=== PATIENT | female | born 1995 | race Two or more races ===

== ENCOUNTER 2023-02-06 10:46 | Observation (INO) | payer OTHER | END 2023-02-06 11:46 | disposition home or self-care (01) | LOC: LDRP 10:46 → UNDOADMOB 10:46 → LDRP 10:49 → UNDODISOB 11:46 | PROVIDERS: ADMIT Obstetrics & Gynecology; ATTEND Obstetrics & Gynecology | DX: O36.8130 Decreased fetal movements, third trimester, not applicable or unspecified (principal); O99.323 Drug use complicating pregnancy, third trimester; F12.90 Cannabis use, unspecified, uncomplicated; Z3A.38 38 weeks gestation of pregnancy | CPT/HCPCS: 59025; 81002; 94760; G0378 ==

== ENCOUNTER 2024-05-13 21:43 | Emergency (ER) | payer MEDICAID, OTHER ==
[~2024-05-13] VITALS: Ht 170.2 cm; Wt 72.7 kg
[2024-05-13 21:43] VITALS: BP 110/74; PULSE 98; RESP 20; O2SAT 100
[2024-05-13] MEDS ORDERED: HYDR2.5C39 TOP (23:23)
[2024-05-13] MEDS ORDERED: HYDR25SU21 RE (23:23)
[2024-05-13] MEDS ORDERED: DOCU-94 PO (23:23)
[2024-05-13] MEDS ORDERED: DIBU1OIN EX (23:23)
[2024-05-13] MEDS ORDERED: IBU600T PO (23:23)
== END 2024-05-14 00:14 | disposition home or self-care (01) ==
LOC: ER 21:43
DX: K64.4 Residual hemorrhoidal skin tags (principal); Z79.899 Other long term (current) drug therapy

== ENCOUNTER 2024-11-08 09:23 | Observation (INO) | payer OTHER ==
[~2024-11-08 09:23] MED LIST: DIBU1OIN EX; DOCU-94 PO; HYDR2.5C39 TOP; HYDR25SU21 RE; IBU600T PO
--- NOTE | 2024-11-08 13:40 | DVHDS2 ---
Physician Discharge Progress N Final Diagnosis: dec movement Operations or Procedures: Operations or Procedures nst,sono Condition on Discharge: Good Disposition: Home Discharge Instructions: Diet: Regular Activity: No Restrictions, As Tolerated Medications: na Follow Up Care: Specialist: 2d Discharge Statement: "Patient was advised to return to the ER or call 911 if any headaches, dizziness, shortness of breath, chest pain, abdominal pain, bleeding, fevers, or worsening of medical condition. Patient was counseled about treatment plan, medications, possible side effects, patientverbalized understanding. All questions were answered to the best of my ability. This discharge took greater then 30 minutes in planning, reviewing documentation, counseling the patient, and discussing with other team members." BRIDGETT VELIZ DO Nov 08, 2024 13:40
== END 2024-11-08 10:53 | disposition home or self-care (01) ==
LOC: LDRP 09:23
PROVIDERS: ADMIT Obstetrics & Gynecology; ATTEND Obstetrics & Gynecology
DX: O36.8130 Decreased fetal movements, third trimester, not applicable or unspecified (principal); O26.893 Other specified pregnancy related conditions, third trimester; H53.8 Other visual disturbances; O99.323 Drug use complicating pregnancy, third trimester; F12.90 Cannabis use, unspecified, uncomplicated; F14.90 Cocaine use, unspecified, uncomplicated; Z3A.30 30 weeks gestation of pregnancy; Z79.899 Other long term (current) drug therapy
CPT/HCPCS: 59025; 81002; 94760; G0378

== ENCOUNTER 2025-01-05 00:11 | Inpatient (IN) | payer MEDICAID, OTHER ==
[~2025-01-05] VITALS: Ht 170.2 cm; Wt 79.4 kg
[2025-01-05] VITALS (7 sets, daily range): BP systolic 113–132; BP diastolic 68–83; PULSE 69–76; RESP 14–18; TEMP 97.8–98.9; O2SAT 95–100
--- NOTE | 2025-01-05 00:39 | DVHPN2 ---
Visit Coding OBGYN Date of Service: Jan 05, 2025 Billing Provider: MINGO BARNETT DO HEALTH INSURANCE SPECIALIST Common Visit Codes: [id number] INP/OBS CARE (HIGH) MINGO BARNETT DO Jan 05, 2025 00:38
[2025-01-05] MEDS ORDERED: WITCH HAZEL-GLYCERIN PAD TOP PRN (00:45)
[2025-01-05] MEDS ORDERED: PHISODERM TOP SOLN 240ML BTL TOP PRN (00:45)
[2025-01-05] MEDS: ceFAZolin 2 GM/D5W50ml 50 ML IV ONE (00:45)
[2025-01-05] MEDS ORDERED: DERMOPLAST 60ML BOTTLE TOP PRN (00:45)
[2025-01-05] MEDS ORDERED: MORPHINE SULF PF 5 MG/10 ML VIAL ONE (00:49)
[2025-01-05] MEDS ORDERED: fentaNYL CITRATE 100 MCG/2 ML VL ONE (00:49)
[2025-01-05] MEDS ORDERED: OXYTOCIN 10UNIT/ML 1ML VIAL ONE (00:51)
[2025-01-05] MEDS ORDERED: ONDANSETRON HCL 4 MG/2 ML VIAL ONE (00:54)
[2025-01-05] MEDS ORDERED: DexAMETHasone SOD PHOS 10MG/1ML VIAL INJ ONE (00:54)
[2025-01-05] MEDS ORDERED: PHENYLEPHRINE HCL 10 MG/ML VL ONE (00:58)
--- NOTE | 2025-01-05 00:58 | DVH ---
INDICATION: VAG BLEED TECHNIQUE: Limited Multiple real-time grayscale transabdominal sonographic images along with color an d duplex Doppler of the uterus were obtained. COMPARISON: None FINDINGS: The placenta is posterior in location and appears to be covering the cervix. heart ra te is 152 beats per minute. Limited interrogation reveals no other gross abnormalities. IMPRESSION: 1. Limited pelvic ultrasound for evaluation of the placenta. Placenta previa noted.
--- NOTE | 2025-01-05 00:59 | DVHHP ---
ADMIT DATE: 01/05/2025 CHIEF COMPLAINT: Acute vaginal bleeding. HISTORY OF PRESENT ILLNESS: This is a 29-year-old -[place] female. She is 5, para 3 with intrauterine at 38 weeks and 2 days by stated EDC. The patient receives care elsewhere outside of [facility]. We currently do not have access to her OB medical records. The patient began to have bright red painless uterine bleeding about an hour ago. The patient has a large clot upon presentation to the hospital. She denies any contractions or rupture of membranes. She denies any substance abuse. She does not have a known history of placenta previa, and states her has been normal thus far. PAST MEDICAL HISTORY: Anemia. PAST SURGICAL HISTORY: Negative. MEDICATIONS: vitamins. ALLERGIES: No known drug allergies. SOCIAL HISTORY: Denies any tobacco, alcohol or illicit drug use. FAMILY HISTORY: Noncontributory. REVIEW OF SYSTEMS: Fourteen-point review of systems is negative as otherwise stated in the history of present illness. OBJECTIVE: VITAL SIGNS: Stable. GENERAL: Alert, in moderate acute distress. HEENT: Normocephalic, atraumatic. EOMI. CARDIOVASCULAR: Regular rate and rhythm. PULMONARY: Clear to auscultation. ABDOMEN: Gravid, soft, nontender. EXTREMITIES: Without cyanosis or edema. PELVIC: Shows normal external female genitalia. There is acute vaginal bleeding. There is approximately a 300-400 mL clot on the bed. Gentle pelvic exam reveals that the cervix is only 1 cm open and 0% effaced. I did not go through the internal os with the exam. A bedside ultrasound shows that the patient has a placenta previa with normal amniotic fluid index, and a viable fetus with heart rate in the 160s. [place] shows irregular uterine contractions. ASSESSMENT: * Term intrauterine , 38 weeks and 2 days. * Acute third trimester bleeding due to placenta previa. PLAN: The patient will be admitted. She will be kept n.p.o. She has consented for emergent primary section. The risks, benefits, alternatives discussed with the patient. Risks of pain, scar, bleeding, infection, possible injury to bowel, bladder, adjacent organs, possible blood transfusion all discussed with the patient and informed consent obtained. Michael Dill DO CG/HEM TID: [id number] RECEIPT: [id number] MTDD
[2025-01-05 01:19] LABS: Basophils # (auto) 0 10 ^3/uL (0-0.2); Mean Corpuscular Hemoglobin 23.4 pg (28.0-32.0); Monocytes # (auto) 0.7 10 ^3/uL (0-1.3); Nucleated Red Blood Cells % 0.1 %; White Blood Cell 9.9 10^3/uL (4.4-10.8)
[2025-01-05 01:21] LABS: Basophils % (auto) 0.3 % (0.0-2.0); Eosinophils # (auto) 0.1 10 ^3/uL (0-0.8); Eosinophils % (auto) 0.6 % (0.0-7.0); Hematocrit 26.4 % (36.0-46.0); Hemoglobin 8.6 g/dL (12.2-16.2); Lymphocytes # (auto) 2.1 10 ^3/uL (0.4-5.4); Lymphocytes % (auto) 21.6 % (10.0-50.0); Mean Corpuscular Hgb Conc. 32.6 g/dL (32.0-36.0); Mean Corpuscular Volume 71.8 fL (80.0-100.0); Monocytes % (auto) 7.2 % (0.0-12.0); Neutrophils # (auto) 6.9 10 ^3/uL (1.6-8.6); Neutrophils % (auto) 70.3 % (37.0-80.0); Platelet Count (auto) 294 10^3/uL (140-450); Red Blood Cells 3.68 10^6/uL (4.0-5.20); Red Cell Distribution Width 15.1 % (11.8-14.3)
[2025-01-05 01:41] LABS: INR 0.97 (0.9-1.15); Partial Thromboplastin Time 24.2 SEC (24.5-34.5); Prothrombin Time 10.3 sec (9.3-11.8)
[2025-01-05 02:06] LABS: Alanine Aminotransferase 13 U/L (7-40); Albumin 4.1 g/dL (3.2-4.8); Anion Gap 12 (5-15); Aspartate Aminotransferase 18 U/L (13-40); Bilirubin, Total 0.6 mg/dL (0.2-1.0); Calcium 9.9 mg/dL (8.7-10.4); Carbon Dioxide 21 mmol/L (20-31); Chloride 106 mmol/L (98-107); Glucose 78 mg/dL (74-106); Sodium 139 mmol/L (136-145); Total Protein 7.1 g/dL (5.7-8.2)
[2025-01-05 02:08] LABS: Alkaline Phosphatase 153 U/L (46-116); BUN/Creatinine Ratio 8.3 (10.0-20.0); Blood Urea Nitrogen < 5 mg/dL (9-23); Potassium 3.3 mmol/L (3.5-5.1)
[2025-01-05] MEDS ORDERED: HYDROmorphone HCL 2 MG/ML VL/or syr IV PRN (02:15)
[2025-01-05] MEDS ORDERED: NALOXONE HCL 0.4 MG/ML VIAL IV PRN (02:15)
[2025-01-05] MEDS: ONDANSETRON HCL 4 MG/2 ML VIAL IV PRN (02:36)
--- NOTE | 2025-01-05 02:40 | DVHOP ---
DATE OF SURGERY: 01/05/2025 PREOPERATIVE DIAGNOSES: * Term intrauterine , 38 weeks and 2 days with acute third trimester bleeding. * Placenta previa. FINAL DIAGNOSES: * Term intrauterine , 38 weeks and 2 days with acute third trimester bleeding. * Placenta previa. PROCEDURE PERFORMED: Primary low transverse section via Pfannenstiel skin incision. SURGEON: Michael Dill DO TYPE OF ANESTHESIA: Spinal. DESCRIPTION OF FINDINGS: Delivery of a liveborn female , cephalic presentation, nuchal cord x 2, clear amniotic fluid, scores of 7 and 9, weight 6 pounds 10 ounces. Normal uterus, normal bilateral ovaries. A 2 cm right paratubal cyst that was removed. The placenta was at least partial previa, covering more than 50% of the cervix. A 2-layer uterine closure. TECHNICAL PROCEDURE: After informed consent was obtained, the patient was taken to the operating room where her spinal anesthesia was found to be adequate. She was placed in the supine position with a slight leftward tilt. She was sterilely prepped and draped in usual sterile fashion. A Pfannenstiel skin incision was made with the scalpel. The incision developed sharply to the underlying layer of fascia. The fascia was incised in the midline and extended laterally with sharp dissection. The rectus muscles were dissected off the rectus fascia and entry into the peritoneal cavity was performed bluntly. The peritoneal incision was extended superiorly and inferiorly and manually stretched. The Keith O retractor was placed into the incision. Using a second scalpel, the lower uterine segment was incised in a low transverse fashion and the incision extended laterally using digital technique. Clear amniotic fluid was obtained. The baby was in cephalic presentation with a double nuchal cord. The baby was delivered atraumatically. The nuchal cord reduced. The nose and mouth were suctioned. The cord was clamped and cut, and the baby handed off to waiting pediatric team. Cord blood and cord gases were obtained. The cord gases, pH were normal. Next, the placenta was delivered. It was found to be previa, covering approximately 50% of the cervical os. After delivery of the placenta, the uterus was exteriorized and cleared of all clots and debris using moist laparotomy sponges. The uterine incision was repaired with #1 PDS in continuous running locking fashion. The uterus was closed in 2 layers, obtaining excellent tissue approximation and hemostasis. The uterus was returned to the abdomen. The cul-de-sac and paracolic gutters were cleared of all clots and debris. In the right fallopian tube, there was a 3 cm paratubal cyst that was excised with the electrocautery and the specimen submitted. The cul-de-sac and paracolic gutters were cleared. The abdomen was irrigated with sterile water and hemostasis was confirmed. At this point, all instrumentation was removed from the patient's abdomen. I then proceeded to close the rectus fascia using #1 Stratafix PDS. The incision was closed in continuous running fashion with good tissue approximation. The subcutaneous tissue was irrigated. Bleeding points controlled with cautery. The subcutaneous tissue was approximated with 2-0 plain gut and the skin closed in subcuticular fashion using a 3-0 Monocryl Stratafix suture. A thin layer of Dermabond was placed over the incision. Once the Dermabond was dry, a Sylke dressing was placed over the incision. The patient tolerated the procedure well. Sponge, lap, needle counts were correct x 4. INTRAOPERATIVE COMPLICATIONS: None. ESTIMATED BLOOD LOSS: 700 mL POSTOPERATIVE CONDITION: Stable. SPECIMENS: Cord blood, cord gases, placenta and right paratubal cyst. MEDICATIONS: The patient had received 2 grams of Ancef prior to skin incision. Michael Dill DO CG/HEM TID: [id number] RECEIPT: [id number] MTDD
--- NOTE | 2025-01-05 02:43 | DVHPN2 ---
Visit Coding OBGYN Date of Service: Jan 05, 2025 Billing Provider: MINGO BARNETT DO ATTENDANT ARCADE Common Visit Codes: PROCEDURE ONLY ATTENDANT ARCADE Procedure Codes: [id number] W/ CARE MINGO BARNETT DO Jan 05, 2025 02:43
[2025-01-05] MEDS: LACTATED RINGER'S 1,000 ML IV SCH (03:20)
[2025-01-05 07:09] LABS: Amphetamine Screen, Urine Neg (NEGATIVE); Barbiturate Scree,Urine Neg (NEGATIVE); Benzodiazephine Screen, Urine Neg (NEGATIVE); Cannabinoid Screen, Urine Pos (NEGATIVE); Cocaine Screen, Urine Neg (NEGATIVE); Opiate Scree,Urine Neg (NEGATIVE); Phencyclidine Screen, Urine Neg (NEGATIVE)
[2025-01-05] MEDS ORDERED: ONDANSETRON HCL 4 MG/2 ML VIAL IV PRN (07:15)
[2025-01-05 07:25] LABS: Basophils # (auto) 0 10 ^3/uL (0-0.2); Eosinophils # (auto) 0 10 ^3/uL (0-0.8); Hemoglobin 8.6 g/dL (12.2-16.2); Mean Corpuscular Hgb Conc. 31.6 g/dL (32.0-36.0); Monocytes # (auto) 0.3 10 ^3/uL (0-1.3); Red Blood Cells 3.74 10^6/uL (4.0-5.20); White Blood Cell 19.4 10^3/uL (4.4-10.8)
[2025-01-05 07:28] LABS: Hematocrit 27.2 % (36.0-46.0); Lymphocytes # (auto) 0.8 10 ^3/uL (0.4-5.4); Lymphocytes % (auto) 3.9 % (10.0-50.0); Mean Corpuscular Volume 72.7 fL (80.0-100.0); Monocytes % (auto) 1.7 % (0.0-12.0); Neutrophils # (auto) 18.3 10 ^3/uL (1.6-8.6); Neutrophils % (auto) 94.4 % (37.0-80.0); Nucleated Red Blood Cells % 0.1 %; Platelet Count (auto) 277 10^3/uL (140-450); Red Cell Distribution Width 15.2 % (11.8-14.3)
[2025-01-05 07:32] LABS: Urine Bacteria FEW /hpf (None Seen); Urine Blood 1+ /uL (Negative); Urine Mucus FEW (None Seen); Urine Protein, UAD 1+ (Negative); Urine Specific Gravity 1.029 (1.001-1.035); Urine Squamous Epithelial Cell FEW /hpf (<5); Urine Urobilinogen 3 mg/dL (Negative); Urine WBC 3 /HPF (0-5)
[2025-01-05] MEDS: LACTATED RINGER'S 1,000 ML IV ONE (07:46)
[2025-01-05 07:51] LABS: Urine Clarity TURBID (Clear); Urine Color Yellow (Yellow)
[2025-01-05] MEDS: ACETAMINOPHEN IV 1000 MG/100ML (10MG/ML) IV PRN (08:23)
[2025-01-05] MEDS: ceFAZolin 1GM/50ML 50 ML IV SCH (08:23)
[2025-01-05] MEDS: POTASSIUM CHL 20 Meq TABLET PO SCH (11:08)
[2025-01-05] MEDS: diphenhdrAMINE HCL 50 MG/1 ML VL IV PRN (13:05)
--- NOTE | 2025-01-05 14:40 | DVHPN2 ---
Progress Note Date Seen: Jan 05, 2025 Subjective POD#1 s/p 1' C/S for Placenta previa w/ acute hemorrhage (bleeding) at Term S: Pain mild to moderate. Patient is thirsty and hungry. Lochia minimal. No fever/chills, no N/V vital signs Vital Sign Date Time Temp Pulse Resp B/P (MAP) Pulse Ox O2 Delivery O2 Flow Rate FiO2 01/05/25 10:50 97.8 70 18 114/71 (85) 100 97.8 01/05/25 07:00 Room Air Total Intake and Output 01/04/25 01/04/25 01/05/25 15:00 23:00 07:00 Output Total 550 ml Balance -550 ml medications Current Medications Medications Dose Ordered Sig/Sherlyn Route Start Time Stop Time Status Last Admin Dose Admin Lactated Ringer's 1,000 ml @ 125 mls/hr Q8H IV 01/05/25 00:45 01/05/25 03:20 125 MLS/HR Witch Ragini 1 pad PRN PRN TOP 01/05/25 00:45 Sodium Lauryl Sulfate 240 ml PRN PRN TOP 01/05/25 00:45 Benzocaine 1 applic PRN PRN TOP 01/05/25 00:45 Potassium Chloride 20 meq BID PO 01/05/25 10:00 01/05/25 22:01 01/05/25 11:08 20 MEQ Diphenhydramine HCl 25 mg Q4HP PRN IV 01/05/25 02:15 01/05/25 13:05 25 MG Ketorolac Tromethamine 30 mg Q6HP PRN IV 01/05/25 02:15 01/10/25 02:14 Ondansetron HCl 4 mg Q4HP PRN IV 01/05/25 07:15 Cefazolin Sodium 50 ml @ 100 mls/hr Q8H IV 01/05/25 07:15 01/05/25 23:44 01/05/25 08:23 100 MLS/HR Acetaminophen 1,000 mg Q8HP PRN IV 01/05/25 07:15 01/05/25 08:23 1,000 MG laboratory and microbiology Laboratory Tests 01/05/25 07:05 01/05/25 00:47 Test 01/05/25 00:47 Range/Units Serum Glucose 78 74-106 mg/dL Objective O: AFVSS Chest: heart and lung sounds normal. Abd soft, non-tender, fundus firm, BS, no rebound or guarding, Incision - dressing and incision clean, dry, intact Ext Neg Homans, Non-tender, edema Lochia - minimal Labs Reviewed. Assessment/Plan POD#) s/p 1' C/S , stable Plan: Continue supportive care, Repeat CBC in a.m. Regular diet, D/C hyatt catheter now. Plan discussed with: Patient Visit Coding OBGYN Date of Service: Jan 05, 2025 Billing Provider: MINGO BARNETT DO SCUBA DIVING TEACHER Common Visit Codes: [id number] INP/OBS CARE(MOD) MINGO BARNETT DO Jan 05, 2025 14:40
[2025-01-05] MEDS ORDERED: HYDROcodone-ACET 5/325MG TAB PO PRN (14:45)
[2025-01-05] MEDS ORDERED: BISACODYL 10 MG RECT SUPP PR PRN (14:45)
[2025-01-05] MEDS: SIMETHICONE 80 MG CHEWABLE TABLET PO SCH (17:44)
[2025-01-05] MEDS: IRON SUCROSE COMPLEX 110 ML IV SCH (17:45)
[2025-01-05] MEDS: KETOROLAC TROMETH 30 MG/ML 1ML VIAL IV PRN (19:51)
[2025-01-05] MEDS: FERROUS SULFATE 325mg EC TAB PO SCH (22:31)
--- NOTE | 2025-01-06 01:51 | DVHPN2 ---
Progress Note Date Seen: Jan 06, 2025 Subjective POD#2 s/p 1' C/S for placenta previa w/ antepartum hemorrhage S: Feeling well. Pain controlled. Lochia light. + Flatus. Tolerating regular diet Voiding well vital signs Vital Sign Date Time Temp Pulse Resp B/P (MAP) Pulse Ox O2 Delivery O2 Flow Rate FiO2 01/05/25 22:54 98.2 76 18 122/78 (93) 96 98.2 01/05/25 19:00 Room Air Total Intake and Output 01/05/25 01/05/25 01/06/25 15:00 23:00 07:00 Output Total 1300 ml 1100 ml Balance -1300 ml -1100 ml medications Current Medications Medications Dose Ordered Sig/Sherlyn Route Start Time Stop Time Status Last Admin Dose Admin Lactated Ringer's 1,000 ml @ 125 mls/hr Q8H IV 01/05/25 00:45 01/05/25 03:20 125 MLS/HR Witch Ragini 1 pad PRN PRN TOP 01/05/25 00:45 Sodium Lauryl Sulfate 240 ml PRN PRN TOP 01/05/25 00:45 Benzocaine 1 applic PRN PRN TOP 01/05/25 00:45 Diphenhydramine HCl 25 mg Q4HP PRN IV 01/05/25 02:15 01/05/25 21:25 25 MG Ketorolac Tromethamine 30 mg Q6HP PRN IV 01/05/25 02:15 01/10/25 02:14 01/05/25 19:51 30 MG Ondansetron HCl 4 mg Q4HP PRN IV 01/05/25 07:15 Acetaminophen 1,000 mg Q8HP PRN IV 01/05/25 07:15 01/06/25 01:02 1,000 MG Dimethicone 80 mg QID PO 01/05/25 18:00 01/05/25 22:31 80 MG Bisacodyl 10 mg DAILYP PRN RI 01/05/25 14:45 Ibuprofen 800 mg Q8HP PRN PO 01/05/25 14:45 Hold Ferrous Sulfate 325 mg Q12HR PO 01/05/25 22:00 01/05/25 22:31 325 MG Acetaminophen/ Hydrocodone Bitart 1 tab Q4HPRN PRN PO 01/05/25 14:45 Acetaminophen/ Hydrocodone Bitart 2 tab Q6HR PRN PO 01/05/25 14:45 Iron Sucrose 110 ml @ 110 mls/hr DAILY@1200 IV 01/05/25 14:45 01/09/25 12:59 01/05/25 17:45 110 MLS/HR laboratory and microbiology Laboratory Tests 01/05/25 07:05 01/05/25 00:47 Test 01/05/25 00:47 Range/Units Serum Glucose 78 74-106 mg/dL Objective O: AFVSS Chest: heart and lung sounds normal. Abd soft, non-tender, fundus firm, BS, no rebound or guarding, Incision - dressing and incision clean, dry, intact Ext Neg Homans, Non-tender, edema Lochia - minimal Labs Reviewed Assessment/Plan POD#1 s/p 1' C/S for placenta previa Chronic Anemia, stable Plan; Check CBC today, IV Iron daily Advance orders continue supportive care Possible D/C tomorrow if remains stable Plan discussed with: Patient Visit Coding OBGYN Date of Service: Jan 06, 2025 Billing Provider: MINGO BARNETT DO LITHARGE SUPERVISOR Common Visit Codes: [id number] INP/OBS CARE(HIGH) MINGO BARNETT DO Jan 06, 2025 01:51
[2025-01-06] MEDS ORDERED: FER325T PO (01:53)
[2025-01-06] MEDS ORDERED: HYDR-4902 PO (01:53)
[2025-01-06] MEDS ORDERED: IBUP-1455 PO (01:53)
[2025-01-06 03:02] VITALS: BP 113/66; PULSE 69; RESP 16; TEMP 98; O2SAT 99
[2025-01-06 03:20] LABS: Basophils # (auto) 0 10 ^3/uL (0-0.2); Eosinophils # (auto) 0 10 ^3/uL (0-0.8); Eosinophils % (auto) 0.1 % (0.0-7.0); Hemoglobin 7.8 g/dL (12.2-16.2); Monocytes # (auto) 1.3 10 ^3/uL (0-1.3)
[2025-01-06 03:22] LABS: Basophils % (auto) 0.1 % (0.0-2.0); Hematocrit 23.9 % (36.0-46.0); Lymphocytes # (auto) 2.9 10 ^3/uL (0.4-5.4); Lymphocytes % (auto) 14.3 % (10.0-50.0); Mean Corpuscular Hemoglobin 23.4 pg (28.0-32.0); Mean Corpuscular Hgb Conc. 32.5 g/dL (32.0-36.0); Monocytes % (auto) 6.3 % (0.0-12.0); Neutrophils # (auto) 15.9 10 ^3/uL (1.6-8.6); Neutrophils % (auto) 79.2 % (37.0-80.0); Platelet Count (auto) 280 10^3/uL (140-450); Red Blood Cells 3.32 10^6/uL (4.0-5.20)
[2025-01-06 03:33] LABS: Chloride 106 mmol/L (98-107); Potassium 4.4 mmol/L (3.5-5.1); Sodium 138 mmol/L (136-145)
[2025-01-06 03:34] LABS: Anion Gap 6 (5-15); Calcium 9.4 mg/dL (8.7-10.4); Carbon Dioxide 26 mmol/L (20-31)
[2025-01-06 03:39] LABS: BUN/Creatinine Ratio 10.3 (10.0-20.0); Glucose 84 mg/dL (74-106)
[2025-01-06 03:47] LABS: Blood Urea Nitrogen 6 mg/dL (9-23)
[2025-01-06 06:40] VITALS: BP 116/82; PULSE 70; RESP 16; TEMP 97.7; O2SAT 99
[2025-01-06] MEDS: HYDROcodone-ACET 5/325MG TAB PO PRN (07:06)
[2025-01-06 11:20] VITALS: BP 114/73; PULSE 72; RESP 18; TEMP 97.9; O2SAT 100
[2025-01-06] MEDS: IBUPROFEN 800 MG TAB PO PRN (11:37)
[2025-01-06 19:00] VITALS: BP 125/75; PULSE 80; RESP 16; TEMP 97.8; O2SAT 99
[2025-01-06 23:00] VITALS: BP 128/65; PULSE 74; RESP 16; TEMP 97.9; O2SAT 100
[2025-01-07 03:00] VITALS: RESP 18
--- NOTE | 2025-01-07 06:15 | DVHPN2 ---
Chief Complaints Patient reports: No new complaints, Other (PPD #2 ) Nursing reports: No new complaints, No abdominal pain, No chest pain, No dizziness, No cough Objective Vitals Vital Signs Date Time Temp Pulse Resp B/P (MAP) Pulse Ox O2 Delivery O2 Flow Rate FiO2 01/07/25 03:00 18 01/06/25 23:00 97.9 74 128/65 (86) 100 97.9 01/06/25 19:00 Room Air General: Normal Neck: Normal Lungs: Normal Cardiovascular: Normal Abdominal: Normal (woulds C/D/I ) Musculoskeletal: Normal Extremities: Normal Skin: Normal Neurological: Normal Studies Laboratory Tests 01/06/25 02:50 Test 01/06/25 02:50 Range/Units Serum Glucose 84 74-106 mg/dL Ass/Plan Assessment PPD #2 section Plan see DC summary see DC orders TERRY MORENO DO Jan 07, 2025 06:15
--- NOTE | 2025-01-07 06:17 | DVHDS2 ---
Discharge Summary Date of Admission Jan 05, 2025 at 00:29 Date of Discharge: Jan 07, 2025 Admitting Diagnosis section Wounds: c/d/i Labs/Diagnostic Data: Laboratory Results Test 01/06/25 02:50 01/05/25 06:49 01/05/25 00:47 01/05/25 00:42 White Blood Count 20.0 10^3/uL (4.4-10.8) Red Blood Count 3.32 10^6/uL (4.0-5.20) Hemoglobin 7.8 g/dL (12.2-16.2) Hematocrit 23.9 % (36.0-46.0) Mean Corpuscular Volume 72.0 fL (80.0-100.0) Mean Corpuscular Hemoglobin 23.4 pg (28.0-32.0) Mean Corpuscular Hemoglobin Concent 32.5 g/dL (32.0-36.0) Red Cell Distribution Width 15.0 % (11.8-14.3) Platelet Count 280 10^3/uL (140-450) Mean Platelet Volume 7.3 fL (6.9-10.8) Neutrophils (%) (Auto) 79.2 % (37.0-80.0) Lymphocytes (%) (Auto) 14.3 % (10.0-50.0) Monocytes (%) (Auto) 6.3 % (0.0-12.0) Eosinophils (%) (Auto) 0.1 % (0.0-7.0) Basophils (%) (Auto) 0.1 % (0.0-2.0) Neutrophils # (Auto) 15.9 10 ^3/uL (1.6-8.6) Lymphocytes # (Auto) 2.9 10 ^3/uL (0.4-5.4) Monocytes # (Auto) 1.3 10 ^3/uL (0-1.3) Eosinophils # (Auto) 0 10 ^3/uL (0-0.8) Basophils # (Auto) 0 10 ^3/uL (0-0.2) Nucleated Red Blood Cells 0.0 % Sodium Level 138 mmol/L (136-145) Potassium Level 4.4 mmol/L (3.5-5.1) Chloride Level 106 mmol/L (98-107) Carbon Dioxide Level 26 mmol/L (20-31) Anion Gap 6 (5-15) Blood Urea Nitrogen 6 mg/dL (9-23) Creatinine 0.58 mg/dL (0.550-1.02) Glomerular Filtration Rate Calc 126 mL/min (>90) BUN/Creatinine Ratio 10.3 (10.0-20.0) Serum Glucose 84 mg/dL (74-106) Calcium Level 9.4 mg/dL (8.7-10.4) Urine Color Yellow (Yellow) Urine Clarity Turbid (Clear) Urine pH 8.0 (5.0-9.0) Urine Specific [place] 1.029 (1.001-1.035) Urine Protein 1+ (Negative) Urine Ketones 1+ (Negative) Urine Blood 1+ /uL (Negative) Urine Nitrite Negative (Negative) Urine Bilirubin Negative (Negative) Urine Urobilinogen 3 mg/dL (Negative) Urine Leukocyte Esterase Negative /uL (Negative) Urine RBC 66 /hpf (0 - 4) Urine Microscopic WBC 3 /HPF (0-5) Urine Squamous Epithelial Cells Few /hpf (<5) Urine Bacteria Few /hpf (None Seen) Urine Mucus Few (None Seen) Urine Glucose Normal mg/dL (Normal) Urine Opiates Screen Neg (NEGATIVE) Urine Fentanyl Screen Pos (NEGATIVE) Urine Barbiturates Screen Neg (NEGATIVE) Urine Phencyclidine Screen Neg (NEGATIVE) Urine Amphetamines Screen Neg (NEGATIVE) Urine Benzodiazepines Screen Neg (NEGATIVE) Urine Cocaine Screen Neg (NEGATIVE) Urine Cannabinoids Screen Pos (NEGATIVE) Total Bilirubin 0.6 mg/dL (0.2-1.0) Aspartate Amino Transferase (AST) 18 U/L (13-40) Alanine Aminotransferase (ALT) 13 U/L (7-40) Alkaline Phosphatase 153 U/L (46-116) Total Protein 7.1 g/dL (5.7-8.2) Albumin 4.1 g/dL (3.2-4.8) Prothrombin Time 10.3 sec (9.3-11.8) Prothrombin Time INR 0.97 (0.9-1.15) Activated Partial Thromboplast Time 24.2 SEC (24.5-34.5) Treponema pallidum Antibody Non-reactive (Negative) Hepatitis B Surface Antigen Negative (Negative) Hepatitis C Antibody Negative (Negative) HIV (1&2) Antibody Negative (Negative) Other Laboratory Tests 01/06/25 02:50 Brief Hx & Hospital Course: PPD #2 Consults/Reason for consult none Operations or Procedures section Condition at Discharge: Good Final Diagnosis/Problems List Discharge Disposition: Home Discharge Instruct/Medications Follow Up/Referral: 1 week wound check with surgeon Discharge Statement: "Patient was advised to return to the ER or call 911 if any headaches, dizziness, shortness of breath, chest pain, abdominal pain, bleeding, fevers, or worsening of medical condition. Patient was counseled about treatment plan, medications, possible side effects, patientverbalized understanding. All questions were answered to the best of my ability. This discharge took greater then 30 minutes in planning, reviewing documentation, counseling the patient, and discussing with other team members." ASSESSMENT ASSESSMENT Assessment Visit Coding OBGYN Date of Service: Jan 07, 2025 Billing Provider: TERRY MORENO DO SPOOLING OPERATOR Common Visit Codes: [id number] INP/OBS CARE (HIGH) SPOOLING OPERATOR Procedure Codes: [id number] OB CARE, TERRY WARD DO Jan 07, 2025 06:17
[2025-01-07 07:00] VITALS: BP 119/77; PULSE 81; RESP 15; TEMP 97.9; O2SAT 98
[2025-01-07 12:07] LABS: Rubella Antibodies, IgG 1.29 index (Immune >0.99)
== END 2025-01-07 09:51 | disposition home or self-care (01) | DRG 540 ==
LOC: LDRP 00:11 → OBSVTOIN 00:29 → LDRP 00:33
PROVIDERS: ADMIT Obstetrics & Gynecology; ATTEND Obstetrics & Gynecology
PROC: 10D00Z1 Extraction of Products of Conception, Low, Open Approach (ICD-10-PCS; principal; 2025-01-05 01:09)
DX: O44.33 Partial placenta previa with hemorrhage, third trimester (principal); O99.02 Anemia complicating childbirth; Z3A.38 38 weeks gestation of pregnancy; Z37.0 Single live birth
CPT/HCPCS: 36415; 76815; 80048; 80053; 80307; 81001; 85025; 85610; 85730; 86703; 86762; 86780; 86803; 86850; 86900; 86901; 86920; 87340; 94760; 96360; 96361; 96374; 96375; G0378; J0131; J1100; J1756; J1885; J2405

== ENCOUNTER 2025-04-21 13:41 | Emergency (ER) | payer OTHER ==
[~2025-04-21] VITALS: Ht 170.2 cm; Wt 78.6 kg
[~2025-04-21 13:41] MED LIST changes: -DIBU1OIN EX; +FER325T PO; +HYDR-4902 PO; -HYDR2.5C39 TOP; -HYDR25SU21 RE; -IBU600T PO; +IBUP-1455 PO
[2025-04-21 14:04] VITALS: BP 129/81; PULSE 83; RESP 16; TEMP 98.5; O2SAT 97
[2025-04-21] MEDS: BENZOCAINE (DENTAL) 20 % SPRAY 60ML MT ONE (14:30)
[2025-04-21] MEDS ORDERED: IBUP-1456 PO (14:46)
[2025-04-21] MEDS ORDERED: AMOX500T3 PO (14:46)
[2025-04-21] MEDS ORDERED: ACET500T58 PO (14:46)
--- NOTE | 2025-04-21 14:46 | ED.PDOC ---
Eye-HPI HPI Comments 29 year old female presents to the ED for the c/c of RUQ Tooth pain. Pt states that her pain has been going on for the past 2x days with an alleviating factor of ice, and a worsening factor of not having ice. Pt states that she does in fact have a dental appointment at [facility] this week on Monday but was advised to come to [facility] for pain medication before then. Pt notes of continuous throbbing at this time. No other associated modifiers or symptoms at this time. Able to eat drink in her usual state of health Chief Complaint: Tooth Pain Time Seen by MD: 13:49 Primary Care Provider: ROBER Tompkins Notes: Nurses Notes, Medications, Allergies Allergies: Coded Allergies: NO KNOWN ALLERGIES (Unverified , 05/13/24) Home Meds Active Scripts Ibuprofen (Ibuprofen) 800 Mg Tab, 1 TAB PO TID for 10 Days, #30 TAB 0 Refills Prov:RAMBO FERNANDO CLIENT DEVELOPMENT MANAGER 04/21/25 Acetaminophen (Acetaminophen) 500 Mg Tab, 1000 MG PO TID for 7 Days, #42 TAB 0 Refills Prov:RAMBO FERNANDO CLIENT DEVELOPMENT MANAGER 04/21/25 Amoxicillin Trihydrate (Amoxicillin) 500 Mg Tab, 1 TAB PO BID for 10 Days, #20 TAB 0 Refills Prov:RAMBO FERNANDO NP 04/21/25 Ibuprofen Micronized (Ibuprofen) 800 Mg Tab, 800 MG PO Q8HP PRN, #30 TAB Prov:MINGO BARNETT DO 01/06/25 Hydrocodone-Acetaminophen (Hydrocodone Bitartrate/AC 5-325 mg) 1 Tab Tab, 1 TAB PO Q6HP PRN, #20 TAB Prov:MINGO BANRETT DO 01/06/25 Ferrous Sulfate (Ferrous Sulfate) 325 Mg Tab, 325 MG PO BID, #60 TAB Prov:MINGO BARNETT DO 25 Docusate Sodium (Colace) 100 Mg Cap, 100 MG PO BID for 30 Days, #60 CAP Prov:REBECCA GATICA MD 05/13/24 Information Source: Patient Mode of Arrival: Ambulatory Timing: Days Duration: Since onset, Days Prehospital treatment: None Quality: Pain Lids: Normal Conjunctiva: Normal Cornea: Normal Pupils: Normal EOM: Normal Fundus: Normal Slit lamp exam: Normal Anterior chamber: Normal Mouth Location: Right, Upper Mouth: Right, Upper, Tender ENT Ear Exam: Normal Nose: Normal Sinuses: Normal Oropharynx: Normal Onset: Spontaneous Throat Exposed to: None History of: None Last Tetanus: Unknown Modifying factors: Nothing Associated signs and symptoms: None Past Medical History PAST MEDICAL HISTORY: Denies Surgical History: Denies all surgeries [employer] History: Denies all [employer]IVER Hx Family History Family History: Unknown Social History Smoker: Non-Smoker Alcohol: Denies ETOH Use Drugs: Denies Drug Use Lives In: Home Constitutional: denies: chills, diaphoresis, fatigue, fever, malaise, sweats, weakness, others EENTM: reports: others (Tooth pain); denies: blurred vision, double vision, ear bleeding, ear discharge, ear drainage, ear pain, ear ringing, eye pain, eye redness, hearing loss, mouth pain, mouth swelling, nasal discharge, nose bleeding, nose congestion, nose pain, photophobia, tearing, throat pain, throat swelling, voice changes Respiratory: denies: cough, hemoptysis, orthopnea, SOB at rest, shortness of breath, SOB with excertion, stridor, wheezing, others Cardiovascular: denies: chest pain, dizzy spells, diaphoresis, Dyspnea on exertion, edema, irregular heart beat, left arm pain, lightheadedness, palpitations, PND, syncope, others Gastrointestinal: denies: abdomen distended, abdominal pain, blood streaked bowels, constipated, diarrhea, dysphagia, difficulty swallowing, hematemesis, melena, nausea, poor appetite, poor fluid intake, rectal bleeding, rectal pain, vomiting, others Genitourinary: denies: abnormal vagina bleeding, burning, dyspareunia, dysuria, flank pain, frequency, hematuria, incontinence, pain, , vagina discharge, urgency, others Neurological: denies: dizziness, fainting, headache, left sided numbness, left sided weakness, numbness, paresthesia, pre-existing deficit, right sided numbness, right sided weakness, seizure, speech problems, tingling, tremors, weakness, others Musculoskeletal: denies: back pain, gout, joint pain, joint swelling, muscle pain, muscle stiffness, neck pain, others Integumetry: denies: bruises, change in color, change in hair/nails, dryness, laceration, lesions, lumps, rash, wounds, others Allergic/Immunocompromised: denies: Difficulty Healing, Frequent Infections, Hives, Itching, others Hematologic/Lymphatic: denies: anemia, blood clots, easy bleeding, easy bruising, swollen glands, others Endocrine: denies: excessive hunger, excessive sweating, excessive thirst, excessive urination, flushing, intolerance to cold, intolerance to heat, un explained weight gain, unexplained weight loss, others Psychiatric: denies: anxiety, bipolar disorder, depression, hopeless, panic disorder, schizophrenia, sleepless, suicidal, others All Other Systems: Reviewed and Negative Physical Exam General Appearance: Mild Distress, Normal HEENT: Normal ENT Inspection, Pharynx Normal, TMs Normal, Other (Localized ttp to tooth number 27, tooth is intact, no signs of gingivitis, no discharge, airway intact) Neck: Full Range of Motion, Non-Tender, Normal, Normal Inspection Respiratory: Chest Non-Tender, Lungs Clear, No Accessory Muscle Use, No Respiratory Distress, Normal Breath Sounds Cardiovascular: No Edema, No JVD, No Murmur, No Gallop, Normal Peripheral Pulses, Regular Rate/Rhythm Breast Exam: Deferred Gastrointestinal: No Organomegaly, Non Tender, No Pulsatile Mass, Normal Bowel Sounds, Soft Genitalia: Deferred Pelvic: Deferred Rectal: Deferred Extremities: No calf tenderness, Normal capillary refill, Normal inspection, Normal range of motion, Non-tender, No pedal edema Musculoskeletal : Apperance: Normal Neurologic: Alert, No Motor Deficits, Normal Affect, Normal Mood, No Sensory Deficits Cerebellar Function: Normal Reflexes: Normal Skin: Dry, Normal Color, Warm Lymphatic: No Adenopathy Was a procedure done? Was a procedure done?: No EENT DIFF Eye: Other Mouth: Other X-Ray, Labs, Meds, VS Vital Signs Date Time Temp Pulse Resp B/P (MAP) Pulse Ox O2 Delivery O2 Flow Rate FiO2 04/21/25 14:04 98.5 83 16 129/81 (97) 97 98.5 X-Ray, Labs, Meds, VS Comment 29 year old female presents to the ED for the c/c of RUQ Tooth pain. Patient arrives alert and oriented, ABC's intact, afebrile, vital signs stable, saturating well in room air Afebrile, vitals within normal limits. Exam as above and airway fully patent and in no respiratory distress. The patient has no neck swelling, no dysphonia or hoarseness, no lymphadenopathy. No trismus or swollen tongue to suggest Angelo's angina. No overt e/o peritonsillar abscess or retropharyngeal abscess. No overt e/o deep space infection; nontoxic appearing and tolerating PO. Non-focal neuro exam with low suspicion for Lemierres. No pain with percussion, low suspicion for periapical abscess. No mastoid tenderness so do not suspect mastoiditis and no pain with manipulation of ear to suggest otitis externa. Trial antibiotics with cautious return precautions discussed w/ full understanding. Patient is stable for discharge at this time. External notes reviewed. Test results and diagnostic imaging interpreted. All diagnostic findings, discharge care, education and instructions provided Follow-up with PCP in 2 to 3 days Patient verbalized understanding and agreed to treatment plan Vital signs stable, afebrile, no acute distress noted Patient ambulatory with strong steady gait Advised to return precautions for any new or worsening symptoms, return to ER immediately for re-evaluation Patient is aware that the purpose of this visit was for an acute medical emergency requiring emergent stabilization. Chronic conditions, including malignancies have not been ruled out. Patient is instructed to follow up with PCP as directed and discharge instructions for continued care and workup. If unable to arrange follow-up, patient is to return to the emergency department for reassessment. Patient (parent or legal guardian if applicable) was given verbal and written discharge instructions and acknowledges understanding. Additional MDM Review of External, Non-ED records: External records reviewed. Discussion with independent historian (EMS, family) history obtained from the patient/parents (if applicable) at bedside Chronic conditions affecting care: None Social determinants of health affecting care: None Time of 1ST Reevaluation: 15:18 Reevaluation 1ST: Unchanged Patient Education/Counseling: Diagnosis, Treatment Family Education/Counseling: No Family Present SEPSIS Sepsis Screen Date sepsis recognized/suspect: Apr 21, 2025 Time Sepsis recognized/suspect: 1404 Recent Procedure: No On Antibiotic Therapy: No Respiratory Rate >20: No Heart Rate >90: No Temp<36 C (96.8 F) or >38.3 C: No SBP <90 or MAP <65 mmHG: No New Acute Mental Status Change: No Is the patient on CPAP, BIPAP,: No Vital Signs Date Time Temp Pulse Resp B/P (MAP) Pulse Ox O2 Delivery O2 Flow Rate FiO2 04/21/25 14:04 98.5 83 16 129/81 (97) 97 98.5 Departure 1 Departure Time of Disposition: 14:45 Impression: Primary Impression: Tooth pain Disposition: 01 HOME / SELF CARE / HOMELESS Condition: Stable e-Prescriptions Ibuprofen (Ibuprofen) 800 Mg Tab 1 TAB PO TID for 10 Days, #30 TAB 0 Refills Prov: RAMBO FERNANDO NP 04/21/25 Acetaminophen (Acetaminophen) 500 Mg Tab 1000 MG PO TID for 7 Days, #42 TAB 0 Refills Prov: RAMBO FERNANDO NP 04/21/25 Amoxicillin Trihydrate (Amoxicillin) 500 Mg Tab 1 TAB PO BID for 10 Days, #20 TAB 0 Refills Prov: RAMBO FERNANDO NP 04/21/25 Critical Care Note Critical Care Time?: No Stability Stability form required: No Heart Score Heart Score: Heart Score Response (Comments) Value History N/A 0 EKG N/A 0 Age N/A 0 Risk Factors N/A 0 Troponin N/A 0 Total 0 I personally scribed for RAMBO FERNANDO NP ([email or web address]) on 04/21/25 at 14:53. Electronically submitted by Aditya Mora ([email or web address]). RAMBO FERNANDO NP Apr 21, 2025 14:46
== END 2025-04-21 15:25 | disposition home or self-care (01) ==
LOC: ER 13:41
DX: K08.89 Other specified disorders of teeth and supporting structures (principal)

== ENCOUNTER 2025-09-05 00:34 | Emergency (ER) | payer OTHER ==
[~2025-09-05] VITALS: Ht 170.2 cm; Wt 79.5 kg
[~2025-09-05 00:34] MED LIST changes: +ACET500T58 PO; +AMOX500T3 PO; +IBUP-1456 PO
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
[2025-09-05] MEDS ORDERED: AUG875T PO (02:41)
[2025-09-05 02:45] VITALS: BP 132/90; PULSE 94; RESP 18; TEMP 98; O2SAT 98
[2025-09-05] MEDS ORDERED: HYDR-4902 PO (02:46)
[2025-09-05] MEDS ORDERED: KETOROLAC TROMETH 60MG/2ML VIAL ONE (02:56)
[2025-09-05] MEDS: KETOROLAC TROMETH 60MG/2ML VIAL IM ONE (02:56)
[2025-09-05] MEDS: OXYCODONE W/ ACETAMINOPHEN 5/325MG TABLET PO ONE (02:56)
[2025-09-05] MEDS ORDERED: OXYCODONE W/ ACETAMINOPHEN 5/325MG TABLET ONE (02:56)
== END 2025-09-05 04:00 | disposition home or self-care (01) ==
LOC: ER 00:34
DX: S02.31XA Fracture of orbital floor, right side, initial encounter for closed fracture (principal); S02.831A Fracture of medial orbital wall, right side, initial encounter for closed fracture; Y04.2XXA Assault by strike against or bumped into by another person, initial encounter; Y92.89 Other specified places as the place of occurrence of the external cause; Y93.01 Activity, walking, marching and hiking; Y99.8 Other external cause status
CPT/HCPCS: 70486; 96372; 99285; J1885